=== PATIENT | male | born 1955 | race Caucasian/White ===

== ENCOUNTER 2016-04-01 19:39 | Emergency (ER) | payer OTHER ==
[~2016-04-01] VITALS: Ht 167.6 cm; Wt 87.3 kg
[~2016-04-01 19:39] MED LIST: ASPCH81X PO; CARV25TA2 PO; CBCI IV; CHOL2000 PO; GABA1CAP PO; INSDGI SQ; INSUINJ7 SC; LNX125 PO; POTA10CA28 PO; ROSU40TA PO; TORS20TA2 PO; WARF4TAB PO
[2016-04-01 19:42] VITALS: TEMP 37.1; Ht 167.6 cm; Wt 87.3 kg
[2016-04-01] MEDS ORDERED: SULFAMETHOXAZOLE/TRIMETHOPRIM DS 800/160MG TAB PO STA (20:34)
[2016-04-01] MEDS ORDERED: PIPERACILLIN/TAZOBACTAM 4.5 GM/100ML D5W IV STA (20:34)
--- NOTE | 2016-04-01 20:52 | EMERGENCY ROOM VISIT NOTE ---
History Report prepared by Reny: Karey Kothari Under the Supervision of: Dr. Darek Jones M.D. First contact with patient: 20:17 Chief Complaint: INFECTION Stated Complaint: INFECTION UMBILICAL AREA Nursing Triage Summary: pt c/o celulitis around umbilical area, states he has had "a cyst" for about a week and it "opened up and began draining" today. denies pain. states he saw PCP yesterday and had CT but was not given results. hx of umbilical celulitis ~6 months ago, pt states "they kept me in the hospital because the infection was in my blood." upon assessment pt alert and oriented x4. breathing WNL. reddness noted around umbilical with drainage coming from left side. drainage is yellow/green. gauze applied at this time. abd soft, nontender, bowel sounds WNL History of Present Illness The patient is a 60 year old male who presents to the Emergency Room with complaints of persistent erythema around the umbilical area starting a few days ago. He started having drainage from the umbilicus today. He currently denies any pain. He denies any fevers, chills, abdominal pain, or any other complaints. He has a history of umbilical cellulitis occurring in July 2015. The area was last drained in July 2015. He had a CT scan yesterday as ordered by his PCP but he does not know the results yet. The patient denies any history of abdominal surgeries. Source of History: patient Onset: a few days ago Position: abdomen (umbilical area) Symptom Intensity: No pain Quality: other (erythema; drainage) Timing: other (persistent) Associated Symptoms: No abdominal pain, No chills, No fevers Review of Systems See HPI for pertinent positives & negatives. A total of 10 systems reviewed and were otherwise negative. Past Medical & Surgical Medical Problems: (1) Atrial fibrillation (2) CAD (coronary artery disease) (3) Cerebral infarction (4) CKD (chronic kidney disease), stage III (5) Diabetic neuropathy (6) DM type 2 (diabetes mellitus, type 2) (7) Dyslipidemia (8) HTN (hypertension) (9) Ischemic cardiomyopathy (10) NICO (obstructive sleep apnea) (11) Pulmonary HTN Surgical Problems: (1) AICD (automatic cardioverter/defibrillator) present (2) History of cataract surgery Family History No pertinent family history Social History Smoking Status: Never Smoker Alcohol Use: occasionally Drug Use: none Marital Status: Housing Status: lives with significant other Occupation Status: employed Current/Historical Medications Scheduled Amoxicillin (Amoxil), 500 MG PO TID Aspirin (Aspirin Chewable), 81 MG PO DAILY Carvedilol (Coreg), 25 MG PO BID Cholecalciferol (Vitamin D3), 1 CAP PO DAILY Digoxin (Digoxin), 0.125 MG PO UD Gabapentin (Neurontin), 200 MG PO BID Insulin (Novolin R), 1 DOSE SC SLIDING SCALE Insulin Glargine (Lantus), 40 UNITS SQ HS Potassium Chloride (Micro-K Ext Rel), 10 MEQ PO DAILY Rosuvastatin Calcium (Crestor), 40 MG PO DAILY Sulfa/Trimethoprim (Bactrim Ds 800MG/160MG), 1 TAB PO BID Torsemide (Demadex), 20 MG PO BID Warfarin Sodium (Coumadin), 4 MG PO QPM Allergies Coded Allergies: Vancomycin (Verified Allergy, Intermediate, "CAUSED VERY SEVERE SHAKES", PER PT'S AND PT, 04/01/16) Physical Exam Vital Signs Date Time Temp Pulse Resp B/P Pulse Ox O2 Delivery O2 Flow Rate FiO2 04/02/16 00:07 71 18 126/83 92 04/01/16 23:18 75 18 126/86 92 Room Air 04/01/16 21:19 82 18 136/89 95 Room Air 04/01/16 20:54 79 04/01/16 19:42 37.1 87 20 119/80 97 Room Air Physical Exam GENERAL: Patient is a healthy-appearing well-nourished HEAD: Normocephalic atraumatic EYES: Ocular movements intact pupils equal and react to light OROPHARYNX mucous membranes are moist no exudates present no erythema or edema present NECK: Supple no nuchal rigidity CHEST: Good equal expansion LUNGS: Clear and equal to auscultation CARDIAC: Normal S1 and S2 ABDOMEN: Soft nontender no guarding. There is an area that appears to be an abscess above the umbilicus that is draining. BACK: No CVA tenderness EXTREMITIES: No pain upon palpation normal muscle strength in all groups no clubbing cyanosis or edema NEURO: Patient is following commands is answering questions appropriately. Alert and oriented x3 Cranial Nerves 2-12 grossly intact Medical Decision & Procedures ER Provider Diagnostic Interpretation: CT scan ordered by Dr. Burns, primary care physician with [facility]. ABD/PELVIS CT CT W/O IV AND W/O PO CONTRAST Impression: Non-air containing centrally hypodense periumbilical 20 x 24 mm collection, possibly recurrent abscess given the history, less likely seroma/hematoma. Diffuse anterior abdominal wall skin thickening and subcutaneous edema consistent with cellulitis. Right inguinal hernia containing small ascites. Equivocal changes of cirrhosis with splenomegaly. Small bilateral pleural effusions. Reading Provider: Stephanie Pascual MD 03-31-2016 Laboratory Results 04/01/16 21:00 Red Blood Count 4.74, Mean Corpuscular Volume 88.8, Mean Corpuscular Hemoglobin 29.1, Mean Corpuscular Hemoglobin Concent 32.8, Mean Platelet Volume 10.0, Neutrophils (%) (Auto) 84.2, Lymphocytes (%) (Auto) 7.2, Monocytes (%) (Auto) 7.6, Eosinophils (%) (Auto) 0.6, Basophils (%) (Auto) 0.2, Neutrophils # (Auto) 7.58, Lymphocytes # (Auto) 0.65, Monocytes # (Auto) 0.68, Eosinophils # (Auto) 0.05, Basophils # (Auto) 0.02 04/01/16 21:00 Test 04/01/16 20:42 04/01/16 21:00 Urine Color YELLOW Urine Appearance CLEAR (CLEAR) Urine pH 6.5 (4.5-7.5) Urine Specific [place] 1.020 (1.000-1.030) Urine Protein 3+ (NEG) Urine Glucose (UA) 2+ (NEG) Urine Ketones NEG (NEG) Urine Occult Blood 2+ (NEG) Urine Nitrite NEG (NEG) Urine Bilirubin NEG (NEG) Urine Urobilinogen NEG (NEG) Urine Leukocyte Esterase NEG (NEG) Urine WBC (Auto) 1-5 /hpf (0-5) Urine RBC (Auto) 10-30 /hpf (0-4) Urine Hyaline Casts (Auto) 5-10 /lpf (0-5) Urine Epithelial Cells (Auto) >30 /lpf (0-5) Urine Bacteria (Auto) NEG (NEG) Urine Renal Epithelial Cells 0-5 /lpf (0-5) Urine Pathogenic Casts 1-5 GRANULAR CASTS /lpf (0) White Blood Count 9.00 K/uL (4.8-10.8) Red Blood Count 4.74 M/uL (4.7-6.1) Hemoglobin 13.8 g/dL (14.0-18.0) Hematocrit 42.1 % (42-52) Mean Corpuscular Volume 88.8 fL (80-100) Mean Corpuscular Hemoglobin 29.1 pg (25-34) Mean Corpuscular Hemoglobin Concent 32.8 g/dl (32-36) Platelet Count 158 K/uL (130-400) Mean Platelet Volume 10.0 fL (7.4-10.4) Neutrophils (%) (Auto) 84.2 % Lymphocytes (%) (Auto) 7.2 % Monocytes (%) (Auto) 7.6 % Eosinophils (%) (Auto) 0.6 % Basophils (%) (Auto) 0.2 % Neutrophils # (Auto) 7.58 K/uL (1.4-6.5) Lymphocytes # (Auto) 0.65 K/uL (1.2-3.4) Monocytes # (Auto) 0.68 K/uL (0.11-0.59) Eosinophils # (Auto) 0.05 K/uL (0-0.5) Basophils # (Auto) 0.02 K/uL (0-0.2) RDW Standard Deviation 54.0 fL (36.4-46.3) RDW Coefficient of Variation 16.5 % (11.5-14.5) Immature Granulocyte % (Auto) 0.2 % Immature Granulocyte # (Auto) 0.02 K/uL (0.00-0.02) Prothrombin Time 30.2 SECONDS (9.0-12.0) Prothromb Time International Ratio 2.7 (0.9-1.1) Anion Gap 10.0 mmol/L (3-11) Est Creatinine Clear Calc Drug Dose 45.7 ml/min Estimated GFR () 46.7 Estimated GFR (Non- 40.3 BUN/Creatinine Ratio 10.8 (10-20) Calcium Level 8.7 mg/dl (8.5-10.1) Total Bilirubin 0.7 mg/dl (0.2-1) Direct Bilirubin 0.3 mg/dl (0-0.2) Aspartate Amino Transf (AST/SGOT) 26 U/L (15-37) Alanine Aminotransferase (ALT/SGPT) 23 U/L (12-78) Alkaline Phosphatase 159 U/L (45-117) Total Protein 7.4 gm/dl (6.4-8.2) Albumin 3.0 gm/dl (3.4-5.0) Lipase 96 U/L (73-393) Labs reviewed by ED physician. Medications Administered Medications (Trade) Dose Ordered Sig/Shane Route Start Time Stop Time Status Last Admin Dose Admin Piperacillin Sod/ Tazobactam Sod (Zosyn Iv) 4.5 gm NOW STAT IV 04/01/16 20:34 04/01/16 20:36 DC 04/01/16 21:19 4.5 GM Trimethoprim/ Sulfamethoxazole (Septra Ds 800/ 160MG Tab) 1 tab NOW STAT PO 04/01/16 20:34 04/01/16 20:36 DC 04/01/16 21:18 1 TAB Lidocaine/ Epinephrine (Buffered Xylocaine/ Epinephrine 1% Inj) 20 ml STK-MED ONCE INFIL 04/01/16 23:02 04/01/16 23:04 DC 04/01/16 23:05 20 ML Hydromorphone HCl (Dilaudid Inj) 1 mg NOW STAT IV 04/01/16 23:05 04/01/16 23:06 DC 04/01/16 23:21 1 MG Ondansetron HCl 4 mg 4 mg NOW STAT IV 04/01/16 23:05 04/01/16 23:06 DC 04/01/16 23:20 4 MG Sodium Chloride (Nss 500ml) 500 ml @ 999 mls/hr Q31M STAT IV 04/01/16 23:05 04/01/16 23:35 DC 04/01/16 23:20 999 MLS/HR Procedure Incision & Drainage Indication: Abscess. Location: Periumbilical area Verbal consent was obtained after the risks and benefits were explained, including but not limited to bleeding, scarring, infection, pain, and bone/joint /nerve damage. At this time, the risks of the procedure are less than the risks of NOT performing the procedure. A time out was taken and the correct patient and site identified. The skin was prepped with betadine and a sterile field set. The wound was anesthetized with 2 ml of 1% lidocaine without epinephrine. The abscess cavity was entered with a needle aspiration and bloody purulent material expressed. The wound was explored for foreign bodies and none found. Debridement was not performed. Packing placed and a sterile dressing applied. Detailed wound care instructions and signs and symptoms of worsening infection reviewed with the patient. No complications and the patient tolerated the procedure well. ED Course 2017: Past medical records reviewed. The patient was evaluated in room C09. A complete history and physical examination was performed. 2033: Trimethoprim/Sulfamethoxazole 1 tab PO, Zosyn IV 4.5 gm IV 2301: I performed incision and drainage. Refer to procedure note for details. 2304: Sodium Chloride 500 ml @ 999 mls/hr IV, Zofran Inj 4 mg IV, Dilaudid Inj 1 mg IV 2350: Upon reexamination the patient is resting comfortably. I discussed results and treatment plan with the patient. He verbalizes agreement and understanding. The patient is ready for discharge. Medical Decision Differential diagnosis: Etiologies such as cellulitis, abscess, MRSA infection, DVT, necrotizing fasciitis, dermatitis, drug eruption, as well as others were entertained.. This is a 60-year-old male who was poorly controlled diabetes who presents emergency Department with a repeat abscess to his umbilical area. The patient had a CAT scan performed yesterday of his abdomen at his primary care physician' s office. This CAT scan was obtained by myself and reviewed. The patient does have what appears to be a small abscess however he is also draining from this area. Using ultrasound guidance I performed an incision and drainage as above. The patient is already on penicillin and Bactrim based on the previous infection. I believe it is reasonable send patient home and to continue these antibiotics at home. I encouraged the patient follow-up with infectious disease. Patient was in agreement with the treatment plan. Impression Primary Impression: Abscess Scribe Attestation The scribe's documentation has been prepared under my direction and personally reviewed by me in its entirety. I confirm that the note above accurately reflects all work, treatment, procedures, and medical decision making performed by me. Departure Information Dispostion Home / Self-Care Referrals Randall Burns M.D. (PCP) Forms HOME CARE DOCUMENTATION FORM, IMPORTANT VISIT INFORMATION, WORK / SCHOOL INSTRUCTIONS Patient Instructions ED Abscess IandD, My [facility] Additional Instructions Continue taking antibiotics as directed Follow up with Dr Vasquez's office Culture results are usually available in approx 48 hours You have been examined and treated today on an emergency basis only. This is not a substitute for, or an effort to provide, complete comprehensive medical care. It is impossible to recognize and treat all injuries or illnesses in a single emergency department visit. It is therefore important that you follow up closely with Dr burns. Call as soon as possible for an appointment. Thank you for your time and consideration. I look forward to speaking with you again soon. Please don't hesitate to call us if you have any questions.
[2016-04-01] MEDS ORDERED: SULF800T23 PO (20:56)
[2016-04-01] MEDS ORDERED: AMOX500C3 PO (20:56)
[2016-04-01 21:05] LABS: URINE APPEARANCE CLEAR (CLEAR); URINE BILIRUBIN NEG (NEG); URINE COLOR YELLOW; URINE EPITHELIAL CELL AUTO >30 /lpf (0-5); URINE NITRITE NEG (NEG); URINE PH 6.5 (4.5-7.5); UROBILINOGEN NEG (NEG)
[2016-04-01 21:10] LABS: MANUAL MICROSCOPIC REQUIRED? NO; REVIEW REQ? YES
[2016-04-01 21:17] LABS: URINE PATH CASTS 1-5 GRANULAR CASTS /lpf (0)
[2016-04-01 21:18] LABS: BASO % 0.2 %; BASO ABS # 0.02 K/uL (0-0.2); COMPLETE YES; EOS % 0.6 %; HEMATOCRIT 42.1 % (42-52); IG% 0.2 %; LYMPH % 7.2 %; LYMPH ABS # 0.65 K/uL (1.2-3.4); MEAN CELL VOLUME 88.8 fL (80-100); MEAN CORPUSCULAR HEMOGLOBIN 29.1 pg (25-34); MEAN CORPUSCULAR HGB CONC 32.8 g/dl (32-36); MONO % 7.6 %; NEUT % 84.2 %; PLATELET COUNT 158 K/uL (130-400); RED BLOOD COUNT 4.74 M/uL (4.7-6.1)
[2016-04-01 21:24] LABS: INR 2.7 (0.9-1.1); PROTHROMBIN TIME (PATIENT) 30.2 SECONDS (9.0-12.0)
[2016-04-01 21:36] LABS: BUN/CREATININE RATIO 10.8 (10-20); CALCIUM 8.7 mg/dl (8.5-10.1); CREATININE 1.8 mg/dl (0.60-1.40); POTASSIUM 4.2 mmol/L (3.5-5.1)
[2016-04-01] MEDS ORDERED: LIDO/EPINEPHRINE/SOD BICARB 20 ML VIAL INFIL ONE (23:02)
[2016-04-01] MEDS ORDERED: SODIUM CHLORIDE 0.9% 500ML 500 ML IV STA (23:05)
[2016-04-01] MEDS ORDERED: ONDANSETRON INJ 2 MG/ML 2 ML VIAL IV STA (23:05)
[2016-04-01] MEDS ORDERED: HYDROmorphone INJ 1 MG/ML SYR IV STA (23:05)
[2016-04-01] MEDS ORDERED: LIDOCAINE/EPINEPHRINE 1% 20 ML VIAL INFIL ONE (23:15)
[2016-04-02 00:07] VITALS: BP 126/83; PULSE 71; O2SAT 92
== END 2016-04-02 00:07 | disposition home or self-care (01) ==
LOC: C.EDB 19:40 → C.EDC 04-02 00:07
DX: L02.216 Cutaneous abscess of umbilicus (principal); I48.91 Unspecified atrial fibrillation; I25.10 Atherosclerotic heart disease of native coronary artery without angina pectoris; N18.3 Chronic kidney disease, stage 3 (moderate); I12.9 Hypertensive chronic kidney disease with stage 1 through stage 4 chronic kidney disease, or unspecified chronic kidney disease; E11.9 Type 2 diabetes mellitus without complications; G47.33 Obstructive sleep apnea (adult) (pediatric); Z79.01 Long term (current) use of anticoagulants; Z79.4 Long term (current) use of insulin; Z79.82 Long term (current) use of aspirin; Z88.1 Allergy status to other antibiotic agents; Z86.73 Personal history of transient ischemic attack (TIA), and cerebral infarction without residual deficits

== ENCOUNTER 2016-07-04 15:52 | Emergency (ER) | payer OTHER ==
[~2016-07-04] VITALS: Ht 170.2 cm; Wt 80.8 kg
[~2016-07-04 15:52] MED LIST changes: +AMOX500C3 PO; -CBCI IV; +SULF800T23 PO
[2016-07-04 15:55] VITALS: TEMP 36.4
[2016-07-04 16:00] VITALS: O2SAT 96
[2016-07-04] MEDS ORDERED: SODIUM CHLORIDE 0.9% 1000ML 1,000 ML IV SCH (16:05)
[2016-07-04 16:21] LABS: BASO % 0.5 %; BASO ABS # 0.04 K/uL (0-0.2); COMPLETE YES; EOS % 0.6 %; HEMATOCRIT 44.2 % (42-52); IG% 0.2 %; LYMPH % 12.4 %; LYMPH ABS # 1.01 K/uL (1.2-3.4); MEAN CELL VOLUME 87.2 fL (80-100); MEAN CORPUSCULAR HGB CONC 32.1 g/dl (32-36); MEAN PLATELET VOLUME 9.5 fL (7.4-10.4); MONO % 6.9 %; NEUT % 79.4 %; PLATELET COUNT 248 K/uL (130-400); RED BLOOD COUNT 5.07 M/uL (4.7-6.1); WHITE BLOOD COUNT 8.13 K/uL (4.8-10.8)
--- NOTE | 2016-07-04 16:22 | DIAGNOSTIC IMAGING REPORT ---
HEAD CT NONCONTRAST CT DOSE: 800.40 mGycm HISTORY: Stroke TECHNIQUE: Multiaxial CT images of the head were performed without the use of intravenous contrast. Automated exposure control was utilized for this study. Comparison: Head CT 07/18/2013. Findings: The paranasal sinuses and mastoid air cells are clear. The calvarium and skull base are intact. There is a 2.2 cm hemorrhagic focus within the high convexity left frontal lobe. This demonstrate a fluid/fluid level. There is mild surrounding vasogenic edema. No significant midline shift at this time. Old right cerebellar infarct. Old left basal ganglia infarct. Impression: A 2.2 cm intraparenchymal hematoma within the left frontal lobe high convexity. Follow-up nonemergent brain MRI is recommended once the hemorrhage has decreased assess for an underlying mass. Electronically signed by: Kal Capellan M.D. 07/04/2016 4:20 PM Dictated Date/Time: 07/04/2016 4:16 PM
[2016-07-04 16:23] VITALS: Ht 170.2 cm; Wt 80.8 kg
--- NOTE | 2016-07-04 16:31 | EMERGENCY ROOM VISIT NOTE ---
History Report prepared by Reny: Tabitha Sanchez Under the Supervision of: Dr. Nancy Prieto D.O. First contact with patient: 15:59 Chief Complaint: CONFUSION Stated Complaint: CONFUSED TODAY, NOT ALERT TO WHAT PEOPLE ARE SAYIN History of Present Illness The patient is a 60 year old male who presents to the Emergency Room with complaints of constant confusion beginning at least 6 hours ANGLESMITH. checked on the patient at 10am this morning when he woke up. At that time she noticed at he was not picking up on what she was saying and he seemed very confused. He was not talking or acting normally. The patient is diabetic and she thought that his BSG might be low, so she went to get the patient some juice and a sandwich. She checked his BSG at it was 342. The patient ate the sandwich and then went back to sleep. let the patient nap and when he woke up she states that he was "still off." He was still not making sense when she was talking to him. He is typically able to ambulate without help, but today he is very weak and unsteady on his feet. notes that he has been having a lot of pain and swelling to his right foot for the past month. He has followed up with his PCP and had x-rays and ultrasounds that were negative. She states that he has been sleeping more due to the pain in his foot. He is taking Tylenol for pain and not taking any other pain medications. The patient is on Coumadin. He has a history of a previous stroke. denies any deficits remaining from his previous stroke. She also states that his BSG is typically high. Source of History: patient, spouse/significant other Onset: at least 6 hours ANGLESMITH Position: other (global) Quality: other (confusion) Timing: constant Associated Symptoms: + fatigue, + weakness Note: Pt is having trouble walking. Review of Systems See HPI for pertinent positives & negatives. A total of 10 systems reviewed and were otherwise negative. Past Medical & Surgical Medical Problems: (1) Atrial fibrillation (2) CAD (coronary artery disease) (3) Cerebral infarction (4) CKD (chronic kidney disease), stage III (5) Diabetic neuropathy (6) DM type 2 (diabetes mellitus, type 2) (7) Dyslipidemia (8) HTN (hypertension) (9) Ischemic cardiomyopathy (10) NICO (obstructive sleep apnea) (11) Pulmonary HTN Surgical Problems: (1) AICD (automatic cardioverter/defibrillator) present (2) History of cataract surgery Family History No pertinent family history Social History Smoking Status: Never Smoker Alcohol Use: occasionally Drug Use: none Marital Status: Housing Status: lives with significant other Occupation Status: employed Current/Historical Medications Scheduled Aspirin (Aspirin Chewable), 81 MG PO DAILY Carvedilol (Coreg), 37.5 MG PO BID Cholecalciferol (Vitamin D3), 1 CAP PO DAILY Digoxin (Digoxin), 0.125 MG PO UD Gabapentin (Neurontin), 200 MG PO BID Insulin (Novolin R), 20 UNITS SC TIDM Insulin Glargine (Lantus), 1 DOSE SQ HS Potassium Chloride (Micro-K Ext Rel), 10 MEQ PO DAILY Rosuvastatin Calcium (Crestor), 40 MG PO DAILY Torsemide (Demadex), 20 MG PO BID Warfarin Sodium (Coumadin), 4 MG PO DIRECTED Allergies Coded Allergies: Vancomycin (Verified Allergy, Intermediate, "CAUSED VERY SEVERE SHAKES", PER PT'S AND PT, 07/04/16) Physical Exam Vital Signs Date Time Temp Pulse Resp B/P Pulse Ox O2 Delivery O2 Flow Rate FiO2 07/04/16 17:20 91 18 166/100 98 Room Air 07/04/16 17:01 95 18 175/150 99 Room Air 07/04/16 16:47 88 18 155/81 98 Room Air 07/04/16 16:31 87 18 168/114 98 Room Air 07/04/16 16:22 93 07/04/16 16:00 96 Room Air 07/04/16 15:55 36.4 90 18 164/101 98 Room Air Physical Exam General: He seems to comprehend what I am saying and follows directions but has expressive aphasia. HEENT: Head - normocephalic and atraumatic. Pupils are equal, round, and reactive to light. Extraocular eye muscles are intact and sclera are anicteric. Ears - bilaterally patent canals with noninjected tympanic membranes and no evidence of hemotympanum. Nose - moist nasal mucosa without discharge. Mouth - moist buccal mucosa. Oropharynx is nonerythematous and there is no tonsillar exudate or edema noted. Neck: Supple; no JVD, nuchal rigidity, cervical lymphadenopathy, or auscultated bruits. Heart: Irregularly irregular rhythm. There is a normal S1 and S2 with no murmurs, clicks, or gallops appreciated. Lungs: Clear to auscultation bilaterally with no wheezes, rales, or rhonchi. Abdomen: Soft, completely nontender, nondistended, with good bowel sounds. Contusions to his abdomen. There are no palpable pulsatile masses or hepatosplenomegaly. There is no guarding, rigidity, or rebound noted. Extremities: No evidence of cyanosis or clubbing. 2+ pitting edema in his legs. There are easily palpable peripheral pulses. Pt has weakness of the right hand. Neuro:The patient is awake and alert with expressive aphasia. Muscle strength is 5/5 in left arm and bilateral lower extremities. Right arm 5/5 in the biceps and triceps, 3/5 at the right hand and wrist. Skin: Pale and slightly jaundiced. Medical Decision & Procedures ER Provider Diagnostic Interpretation: Radiology results as stated below per my review and the radiologist's interpretation: HEAD CT NONCONTRAST CT DOSE: 800.40 mGycm HISTORY: Stroke TECHNIQUE: Multiaxial CT images of the head were performed without the use of intravenous contrast. Automated exposure control was utilized for this study. Comparison: Head CT 07/18/2013. Findings: The paranasal sinuses and mastoid air cells are clear. The calvarium and skull base are intact. There is a 2.2 cm hemorrhagic focus within the high convexity left frontal lobe. This demonstrate a fluid/fluid level. There is mild surrounding vasogenic edema. No significant midline shift at this time. Old right cerebellar infarct. Old left basal ganglia infarct. Impression: A 2.2 cm intraparenchymal hematoma within the left frontal lobe high convexity. Follow-up nonemergent brain MRI is recommended once the hemorrhage has decreased assess for an underlying mass. Electronically signed by: Kal Capellan M.D. 07/04/2016 4:20 PM Dictated Date/Time: 07/04/2016 4:16 PM Laboratory Results 07/04/16 16:04 Red Blood Count 5.07, Mean Corpuscular Volume 87.2, Mean Corpuscular Hemoglobin 28.0, Mean Corpuscular Hemoglobin Concent 32.1, Mean Platelet Volume 9.5, Neutrophils (%) (Auto) 79.4, Lymphocytes (%) (Auto) 12.4, Monocytes (%) (Auto) 6.9, Eosinophils (%) (Auto) 0.6, Basophils (%) (Auto) 0.5, Neutrophils # (Auto) 6.45, Lymphocytes # (Auto) 1.01, Monocytes # (Auto) 0.56, Eosinophils # (Auto) 0.05, Basophils # (Auto) 0.04 07/04/16 16:04 Test 07/04/16 16:03 07/04/16 16:04 07/04/16 16:25 Bedside Glucose 481 mg/dl (70-99) White Blood Count 8.13 K/uL (4.8-10.8) Red Blood Count 5.07 M/uL (4.7-6.1) Hemoglobin 14.2 g/dL (14.0-18.0) Hematocrit 44.2 % (42-52) Mean Corpuscular Volume 87.2 fL (80-100) Mean Corpuscular Hemoglobin 28.0 pg (25-34) Mean Corpuscular Hemoglobin Concent 32.1 g/dl (32-36) Platelet Count 248 K/uL (130-400) Mean Platelet Volume 9.5 fL (7.4-10.4) Neutrophils (%) (Auto) 79.4 % Lymphocytes (%) (Auto) 12.4 % Monocytes (%) (Auto) 6.9 % Eosinophils (%) (Auto) 0.6 % Basophils (%) (Auto) 0.5 % Neutrophils # (Auto) 6.45 K/uL (1.4-6.5) Lymphocytes # (Auto) 1.01 K/uL (1.2-3.4) Monocytes # (Auto) 0.56 K/uL (0.11-0.59) Eosinophils # (Auto) 0.05 K/uL (0-0.5) Basophils # (Auto) 0.04 K/uL (0-0.2) RDW Standard Deviation 45.5 fL (36.4-46.3) RDW Coefficient of Variation 14.3 % (11.5-14.5) Immature Granulocyte % (Auto) 0.2 % Immature Granulocyte # (Auto) 0.02 K/uL (0.00-0.02) Anion Gap 6.0 mmol/L (3-11) Est Creatinine Clear Calc Drug Dose 54.0 ml/min Estimated GFR () 58.2 Estimated GFR (Non- 50.2 BUN/Creatinine Ratio 15.3 (10-20) Calcium Level 9.4 mg/dl (8.5-10.1) Total Creatine Kinase 69 U/L (39-308) Creatine Kinase MB 1.1 ng/ml (0.5-3.6) Creatine Kinase MB Ratio 1.6 (0-3.0) Troponin I 0.029 ng/ml (0-0.045) Beta-Hydroxybutyric Acid 6.46 mg/dL (0.2-2.81) Chemistry Specimen Hemolysis Prothrombin Time 91.7 SECONDS (9.0-12.0) Prothromb Time International Ratio 7.9 (0.9-1.1) Activated Partial Thromboplast Time 59.8 SECONDS (21.0-31.0) Partial Thromboplastin Ratio 2.3 Laboratory results per my review. Medications Administered Medications (Trade) Dose Ordered Sig/[facility] Route Start Time Stop Time Status Last Admin Dose Admin Sodium Chloride 1,000 ml @ 50 mls/hr Q20H IV 07/04/16 16:05 07/04/16 18:15 DC 07/04/16 16:29 50 MLS/HR Phytonadione 10 mg/Sodium Chloride 51 ml @ 102 mls/hr TODAY@1700 ONCE IV 07/04/16 17:00 07/04/16 17:43 DC 07/04/16 17:10 102 MLS/HR Prothrombin Complex Concent (Human)/Syringe (Kcentra/Syringe) 160 ml @ 10 mls/min TODAY@1710 IV 07/04/16 17:10 07/04/16 18:15 DC 07/04/16 17:33 10 MLS/MIN Procedure Medications Administered: NSS 1000 ml @ 50 mls/hr IV Prothrombin Complex Concent (Human) 4000 unit/syringe 160 ml @ 10 mls/min IV ECG Indication: altered mental status Rate (beats per minute): 83 Rhythm: atrial fibrillation Findings: no acute ischemic change, no ectopy Comparison ECG Date: 11/27/13 Change: A-fib has replaced NSR. ED Course 1559: Past medical records reviewed. The patient was evaluated in room A1. A complete history and physical exam was performed. 2 IV locks were initiated and labs were drawn as above. He went for CT scan of the brain which showed intraparenchymal hemorrhage. He had a twelve-lead EKG as described above. 1605: NSS 1000 ml @ 50 mls/hr IV 1616: I reevaluated the patient after he returned from CT. 1624: I updated the patient and his on his CT results. I informed them that the patient would need to be transferred to another facility. The patient' s is in agreement with the treatment plan. They requested [facility]. 1627: At this time I spoke with Dr. Maldonado in the ER at [facility]. We discussed the patient's results. He recommended that I discuss the case with the ICU. 1633: I discussed the patient's case with Dr. Marquez of the ICU at [facility]. The patient was accepted to the ICU for further management. 1653: I spoke with Dr. Zamarripa of the anticoagulation clinic. We discussed the patient's K-centra dosage. 1655: I reassessed the patient at this time. He is doing well. I discussed the results and treatment plan with the patient's . I answered all pertaining questions that she had. She expressed understanding and verbalized agreement. The patient will be transferred via air to [facility] for further management. 1710: Prothrombin Complex Concent (Human) 4000 unit/syringe 160 ml @ 10 mls/min IV 1714: I reevaluated the patient. Life flight has arrived in the department. I gave flight crew report And the patient is being transferred. Medical Decision The patient is a 60 year old male who presents to the ED with confusion. Differential diagnosis includes intracranial hemorrhage, acute CVA, hypoglycemia , TIA, intracranial mass. Laboratory results as stated below per my review: White count 8.1, stable H&H, BUN 23, creatinine 1.5, glucose 471, BHA 6.4, troponin 0.029, INR 7.9, PT 91.7, PTT 59.8 This is a 60-year-old male patient with a history of stroke who presents to the emergency department with difficulty communicating. Physical exam, the patient has an obvious expressive aphasia with right hand weakness. CT scan of the brain reveals an intraparenchymal hemorrhage in the left frontal region. Initially, the patient was moderately hypertensive but then blood pressure came down to 155/88. He remains hemolytically stable at this time. The patient has a supratherapeutic INR. He was given K-Centra. Mental status has improved slightly prior to discharge because the patient is now able to voice a couple of words. Consults Time Called: 1625 Consulting Physician: Dr. Maldonado Returned Call: [phone] At this time I spoke with Dr. Maldonado in the ER at [facility]. We discussed the patient's results. He recommended that I discuss the case with the ICU. Additional Consults: Time Called: 1631 Consulted Physician: Dr. Marquez Returned Call: [phone] Additional Comments: I discussed the patient's case with Dr. Marquez of the ICU at [facility]. The patient was accepted to the ICU for further management. Impression Primary Impression: Intracranial hemorrhage Additional Impression: Supratherapeutic INR Critical Care I have personally spent greater than 60 minutes of critical care time in the direct management of this patient. This includes bedside care, interpretation of diagnostic studies, and testing, discussion with consultants, patient, and family members, and other required patient management activities. This 60 minutes is in excess of all separately billable procedures. Scribe Attestation The scribe's documentation has been prepared under my direction and personally reviewed by me in its entirety. I confirm that the note above accurately reflects all work, treatment, procedures, and medical decision making performed by me. Departure Information Dispostion Transfer Acute Care Facility Referrals Randall Lerma M.D. (PCP) Patient Instructions [facility] Stroke History Time Last Known Well last night Stroke t-PA Criteria Reviewed Does NOT meet criteria for t-PA Reason t-PA Not Given Contraindicated Strict Exclusion Criteria CT findings of ICH or SAH, Known coagulopathy Extended Window (3-4.5 hour) Any anticoagulant use Problem Qualifiers
[2016-07-04 16:44] LABS: BUN/CREATININE RATIO 15.3 (10-20); CALCIUM 9.4 mg/dl (8.5-10.1); CKMB/CK RATIO 1.6 (0-3.0); CREATININE 1.5 mg/dl (0.60-1.40); POTASSIUM 4.9 mmol/L (3.5-5.1)
[2016-07-04] MEDS ORDERED: PROTHROMBIN COMP CONC- KCENTRA 4,000 UNIT in SYRINGE 0 ML IV STA (16:51)
[2016-07-04 16:57] LABS: INR 7.9 (0.9-1.1); PROTHROMBIN TIME (PATIENT) 91.7 SECONDS (9.0-12.0)
[2016-07-04 16:58] LABS: PARTIAL THROMBOPLASTIN RATIO 2.3
[2016-07-04 16:58] LABS: BETA-HYDROXYBUTYRATE 6.46 mg/dL (0.2-2.81)
[2016-07-04] MEDS: PHYTONADIONE INJ 10 MG in SODIUM CHLORIDE 0.9% 50ML 50 ML IV ONE ×2 (17:10→17:33)
[2016-07-04] MEDS ORDERED: PROTHROMBIN COMP CONC- KCENTRA 4,000 UNIT in SYRINGE 0 ML IV SCH (17:10)
[2016-07-04 17:20] VITALS: BP 166/100; PULSE 91; O2SAT 98
== END 2016-07-04 17:25 | disposition short-term general hospital (02) ==
LOC: C.EDB 15:54 → C.ED 17:25
DX: I62.9 Nontraumatic intracranial hemorrhage, unspecified (principal); R79.1 Abnormal coagulation profile; F80.1 Expressive language disorder; I25.10 Atherosclerotic heart disease of native coronary artery without angina pectoris; I12.9 Hypertensive chronic kidney disease with stage 1 through stage 4 chronic kidney disease, or unspecified chronic kidney disease; E11.22 Type 2 diabetes mellitus with diabetic chronic kidney disease; N18.3 Chronic kidney disease, stage 3 (moderate); E11.40 Type 2 diabetes mellitus with diabetic neuropathy, unspecified; I25.5 Ischemic cardiomyopathy; E78.5 Hyperlipidemia, unspecified; I27.2 Other secondary pulmonary hypertension; R29.898 Other symptoms and signs involving the musculoskeletal system; I48.91 Unspecified atrial fibrillation; Z86.73 Personal history of transient ischemic attack (TIA), and cerebral infarction without residual deficits; Z95.810 Presence of automatic (implantable) cardiac defibrillator; Z98.49 Cataract extraction status, unspecified eye; Z79.01 Long term (current) use of anticoagulants; Z79.4 Long term (current) use of insulin; Z79.82 Long term (current) use of aspirin; Z79.899 Other long term (current) drug therapy